=== PATIENT | male | born 1950 | race Asian ===

== ENCOUNTER 2021-03-25 02:47 | Inpatient (IN) | payer MEDICARE, OTHER ==
[2021-03-25] VITALS (14 sets, daily range): BP systolic 86–134; BP diastolic 42–81
[~2021-03-25] VITALS: Ht 160 cm; Wt 59.5 kg
[2021-03-25] MEDS ORDERED: morphine 4 MG/ML inj SYRINge IV ONE ×2 (03:20→03:35)
[2021-03-25] MEDS ORDERED: ondansetron/PF 4mg/2ml inj IV ONE (03:30)
[2021-03-25 03:34] LABS: BASOPHILS # (AUTO) 0.1 X10'3 (0-0.2); BASOPHILS % (AUTO) 0.7 % (0-1); EOSINOPHILS # (AUTO) 0.1 X10'3 (0-0.9); EOSINOPHILS % (AUTO) 0.7 % (0-6); HEMATOCRIT 46.7 % (42.0-52.0); HEMOGLOBIN 15.7 g/dl (14.0-17.9); LYMPHOCYTES # (AUTO) 0.9 X10'3 (1.1-4.8); MEAN CORPUSCULAR HEMOGLOBIN 31.3 PG (27.0-31.0); MEAN CORPUSCULAR HGB CONC 33.6 g/dL (33.0-36.5); MEAN CORPUSCULAR VOLUME 93.1 FL (78-98); MONOCYTES # (AUTO) 0.5 X10'3 (0-0.9); NEUTROPHILS # (AUTO) 7.3 X10'3 (1.8-7.7); NEUTROPHILS % (AUTO) 82.6 % (42-75); PLATELET COUNT 218 X10'3 (140-440); RED BLOOD COUNT 5.01 X10'6 (4.70-6.10); RED CELL DISTRIBUTION WIDTH 13.5 % (11.5-14.5); WHITE BLOOD COUNT 8.9 X10'3 (4.5-11.0)
[2021-03-25] MEDS ORDERED: morphine 4 MG/ML inj SYRINge ONE (03:34)
[2021-03-25 03:57] LABS: ALANINE AMINOTRANSFERASE 25 U/L (12-78); ALBUMIN 4.4 G/DL (3.4-5.0); ALBUMIN/GLOBULIN RATIO 1.3 (1.1-1.5); ALKALINE PHOSPHATASE 116 IU/L (46-116); ANION GAP 10 (8-16); ASPARTATE AMINO TRANSFERASE 20 U/L (10-37); BILIRUBIN,TOTAL 0.7 MG/DL (0.1-1.0); BLOOD UREA NITROGEN 19 MG/DL (7-18); CHLORIDE 103 MMOL/L (99-107); GLUCOSE 132 MG/DL (70-104); LIPASE 78 U/L (73-393); POTASSIUM 3.7 MMOL/L (3.5-5.1); SODIUM 141 MMOL/L (135-145); TOTAL CARBON DIOXIDE 28.4 MMOL/L (24-32); TOTAL PROTEIN 7.9 G/DL (6.4-8.2); eGFR 74 ML/MIN
[2021-03-25 04:25] LABS: CLARITY,URINE CLEAR (Clear); COLOR,URINE YELLOW (Yellow); GLUCOSE, URINE NEGATIVE (Neg); KETONES,URINE NEGATIVE (Neg); LEUKOCYTE ESTERASE ,URINE NEGATIVE (Neg); NITRITES, URINE NEGATIVE (Neg); OCCULT BLOOD,URINE TRACE-INTACT (Neg); PROTEIN,URINE NEGATIVE (Neg)
[2021-03-25 04:29] LABS: UA COLLECTION TYPE CLN CATCH MIDSTREAM
[2021-03-25 04:30] LABS: BACTERIA,URINE NONE SEEN /HPF (Neg); MUCUS STRANDS FEW /LPF (Neg); RBC,URINE 0-2 /HPF (0-2); SQUAMOUS EPITHELIAL CELL,UR FEW /LPF (FEW); WBC,URINE 0-4 /HPF (0-4)
[2021-03-25] MEDS ORDERED: piperacillin/tazo 4.5gm/100ml 100 ML IV ONE ×2 (05:45→08:00)
[2021-03-25] MEDS ORDERED: ondansetron/PF 4mg/2ml inj IV PRN ×3 (06:35→12:40)
[2021-03-25] MEDS ORDERED: potassium Cl 20 mEq SR tablet PO PRN ×2 (06:35)
[2021-03-25] MEDS ORDERED: mag hydrox/Alum hydrox/simeth 30ml oral suspension PO PRN (06:35)
[2021-03-25] MEDS ORDERED: magnesium 2GM in 50ml NS 50 ML IV PRN (06:35)
[2021-03-25] MEDS ORDERED: morphine 2 MG/ML inj. syringe IV PRN ×4 (06:35→12:40)
[2021-03-25] MEDS ORDERED: magnesium hydroxide 30ml (MOM) UD suspension PO PRN (06:35)
[2021-03-25] MEDS ORDERED: magnesium 4gm in 100ml NS 100 ML IV PRN (06:35)
[2021-03-25] MEDS ORDERED: potassium Cl 40MEQ/1/2NS 520ml 520 ML IV PRN ×2 (06:35)
[2021-03-25] MEDS ORDERED: acetaminophen 325mg tablet PO PRN (06:35)
[2021-03-25] MEDS ORDERED: ATOR40TA PO (07:32)
[2021-03-25] MEDS: normal saline 1000ml 1,000 ML IV SCH ×2 (07:37→16:35)
[2021-03-25] MEDS: K and/or MAG REPLACEMENT MC SCH ×2 (08:00→20:00)
[2021-03-25] MEDS ORDERED: INDOCYANINE GREEN 25 MG/10 ML VIAL IV ONE (09:00)
--- NOTE | 2021-03-25 10:19 | NUR ---
contact center agent Anywaldofredy Winters [phone]
[2021-03-25] MEDS ORDERED: hydrALAZINE 20mg/ml inj. IV PRN (10:20)
[2021-03-25] MEDS ORDERED: ringers solution, lacted 1,000 ML IV ONE (10:20)
[2021-03-25] MEDS ORDERED: morphine 4 MG/ML inj SYRINge IV PRN ×2 (10:20→12:40)
[2021-03-25] MEDS ORDERED: ringers solution, lacted 1,000 ML IV SCH ×2 (10:20→12:40)
[2021-03-25] MEDS ORDERED: fentaNYL/PF 50MCG/1 ML 2ML syringe IV PRN ×2 (10:20)
[2021-03-25] MEDS ORDERED: labetalol 20mg/4ml (5mg/ml) syringe IV PRN (10:20)
--- NOTE | 2021-03-25 11:04 | NUR ---
green dye given at 1100
--- NOTE | 2021-03-25 11:44 | NUR ---
Received report from ED on pt going directly to OR then to floor. OR picking up pt now.
[2021-03-25] MEDS ORDERED: LIDOcaine 1% 30ml preserv. free vial ONE (12:18)
[2021-03-25] MEDS ORDERED: BUPIVAcaine/PF 2.5 mg/ml (0.25%) 30ml vial ONE (12:18)
[2021-03-25] MEDS ORDERED: proCHLORperazine 10 MG/2 ml inj IV PRN (12:40)
[2021-03-25] MEDS ORDERED: meperidine/PF 25mg/ml syringe IV PRN ×3 (12:40)
[2021-03-25] MEDS ORDERED: neostigmine methylsulfate 1 MG/ML 10ml vial ONE (12:50)
[2021-03-25] MEDS ORDERED: midazolam 1 mg/ML 2ml injection ONE (12:50)
[2021-03-25] MEDS ORDERED: glycopyrrolate 0.2mg/ml inj ONE (12:50)
[2021-03-25] MEDS ORDERED: sevoflurane 250ml liquid IH ONE (12:50)
[2021-03-25] MEDS ORDERED: dexamethasone sod phosphate 10mg/ml inj ONE (12:50)
[2021-03-25] MEDS ORDERED: fentaNYL/PF 50MCG/1 ML 2ML syringe ONE ×2 (12:50→13:47)
[2021-03-25] MEDS ORDERED: rocuronium 10mg/ml inj IV ONE (12:50)
[2021-03-25] MEDS ORDERED: ceFAZolin 1000mg inj ONE ×2 (13:19)
[2021-03-25] MEDS ORDERED: ondansetron/PF 4mg/2ml inj ONE (13:19)
[2021-03-25] MEDS ORDERED: LIDOcaine 1%/PF 5ML 10 MG/ML VIAL ONE (13:19)
[2021-03-25] MEDS ORDERED: propofol inj 20 ML IV ONE (13:19)
[2021-03-25] MEDS ORDERED: HYDROcodone/acetaminophen 5mg/325mg tablet PO PRN (14:30)
--- NOTE | 2021-03-25 14:30 | NUR ---
Received from OR via BED, accompanied by Anesthesiologist FLOWER and report given by Anesthesiolgist. PT DROWSY, OXYGENATING WELL ON 10 LPM -2 VIA MASK, NOP RESP DISTRESS NOTED. PT DENIES NAUSEA, C/O MILD/MOD INCISIONAL PAIN. WILL MEDICATE PRN, SEE EMAR. LARGE BANDAIDS TO ABD TROCAR SITES, CDI. SCDS ON, NO LYNNE. VSS.
--- NOTE | 2021-03-25 15:25 | NUR ---
Report called to receiving nurse. Transferred via BED Belongings WITH PT, 1 BAG OF CLOTHING AND GLASSES. VSS, TOLERATING PO FLUIDS WELL. PAIN LEVEL SLOWLY TRENDING DOWN AFTER PAIN MEDS GIVEN. TRANSFERRED TO 4013B IN STABLE CONDITION. Special Issues communicated to receiving nurse.
--- NOTE | 2021-03-25 15:30 | NUR ---
Received pt and report from cone machine feeder Kelsie. Call light in reach, pt's nephew present. VSS, bed low. Oriented to room and post-op POC. both pt and family verbalize understanding.
--- NOTE | 2021-03-25 18:11 | NUR ---
Problems reprioritized. Patient report given, questions answered & plan of care reviewed with MAKENNA Nelson.
[2021-03-25] MEDS: piperacillin/tazo 4.5gm/100ml 100 ML IV SCH (19:14)
[2021-03-25] MEDS: HYDROcodone/acetaminophen 10/325mg tab PO PRN (19:16)
[2021-03-25] MEDS ORDERED: atorvastatin 20mg tablet PO SCH (21:00)
--- NOTE | 2021-03-26 04:10 | NUR ---
Patient in room ORTHO 4013. I have received report from Fracisco from ortho neuro Rn and had the opportunity to ask questions and will assume patient care upon arrival to room 360a..
[2021-03-26 05:10] VITALS: BP 93/55
--- NOTE | 2021-03-26 05:10 | NUR ---
pt arrived to the room and and set up vss no complaints. he noted family by phone that he was in this room now. pt ambulating without difficulty has not passed gas at yet.
--- NOTE | 2021-03-26 05:15 | NUR ---
TRANSFERRED PT TO 360A ON A WHEELCHAIR. GAVE REPORT TO MAKENNA WISE PRIOR TO PT'S TRANSFER.
--- NOTE | 2021-03-26 05:46 | NUR ---
iv pepcid given as ordered. no complaints at this time.
[2021-03-26] MEDS ORDERED: famotidine/PF 10 mg/ml inj IV ONE (06:00)
--- NOTE | 2021-03-26 06:03 | NUR ---
Problems reprioritized. Patient report given, questions answered & plan of care reviewed with DIANE MENSAH. Addendum: 03/26/21 at 0605 by Jazmín Bernabe RN Amended: Links added.
--- NOTE | 2021-03-26 06:28 | NUR ---
Problems reprioritized. Patient report given, questions answered & plan of care reviewed with MAKENNA MCMAHON. Addendum: 03/26/21 at 0630 by Leslie Phillips RN [facility] PT
[2021-03-26 07:00] VITALS: BP 105/60
[2021-03-26 07:41] LABS: BASOPHILS % (AUTO) 0.2 % (0-1); EOSINOPHILS % (AUTO) 0 % (0-6); HEMATOCRIT 44.9 % (42.0-52.0); LYMPHOCYTES # (AUTO) 0.9 X10'3 (1.1-4.8); LYMPHOCYTES % (AUTO) 6.6 % (21-51); MEAN CORPUSCULAR HEMOGLOBIN 31.5 PG (27.0-31.0); MEAN CORPUSCULAR HGB CONC 33.3 g/dL (33.0-36.5); MEAN CORPUSCULAR VOLUME 94.6 FL (78-98); MEAN PLATELET VOLUME 8.4 FL (7.4-10.4); MONOCYTES # (AUTO) 0.9 X10'3 (0-0.9); MONOCYTES % (AUTO) 6.6 % (2-12); NEUTROPHILS # (AUTO) 11.8 X10'3 (1.8-7.7); NEUTROPHILS % (AUTO) 86.6 % (42-75); PLATELET COUNT 192 X10'3 (140-440); RED BLOOD COUNT 4.74 X10'6 (4.70-6.10); WHITE BLOOD COUNT 13.6 X10'3 (4.5-11.0)
[2021-03-26] MEDS: K and/or MAG REPLACEMENT MC SCH (08:00)
[2021-03-26 08:18] LABS: ALANINE AMINOTRANSFERASE 28 U/L (12-78); ALBUMIN 3.6 G/DL (3.4-5.0); ALKALINE PHOSPHATASE 93 IU/L (46-116); ANION GAP 11 (8-16); ASPARTATE AMINO TRANSFERASE 31 U/L (10-37); BILIRUBIN,TOTAL 1.6 MG/DL (0.1-1.0); BLOOD UREA NITROGEN 14 MG/DL (7-18); BUN/CREATININE RATIO 13.7 (5.4-32.0); CALCIUM 8.4 MG/DL (8.5-10.1); CHLORIDE 106 MMOL/L (99-107); CREATININE 1.02 MG/DL (0.60-1.10); GLUCOSE 121 MG/DL (70-104); MAGNESIUM 2.2 MG/DL (1.5-2.4); POTASSIUM 3.9 MMOL/L (3.5-5.1); SODIUM 142 MMOL/L (135-145); TOTAL CARBON DIOXIDE 25.2 MMOL/L (24-32); TOTAL PROTEIN 7.3 G/DL (6.4-8.2); eGFR 72 ML/MIN
[2021-03-26] MEDS: piperacillin/tazo 4.5gm/100ml 100 ML IV SCH (08:59)
[2021-03-26] MEDS: normal saline 1000ml 1,000 ML IV SCH ×2 (09:03)
[2021-03-26] MEDS ORDERED: HYDR-3965 PO (11:39)
[2021-03-26] MEDS: HYDROcodone/acetaminophen 10/325mg tab PO PRN (12:52)
--- NOTE | 2021-03-26 15:30 | NUR ---
Patient was educated on worsening symptoms, medications, and follow up care. Iv was removed and canula was intact. Patient stated he had all belonging and was taken down by wheel chair.
== END 2021-03-26 15:27 | disposition home or self-care (01) | DRG 419 ==
LOC: ER 02:47 → ED HOLD 06:35 → PACU 15:03 → ORTHO 4S 15:40 → SUR 3N 03-26 06:10
PROVIDERS: ADMIT Family Medicine; ATTEND Family Medicine
PROC: 8E0W4CZ Robotic Assisted Procedure of Trunk Region, Percutaneous Endoscopic Approach (ICD-10-PCS; 2021-03-25)
PROC: BF532Z0 Other Imaging of Gallbladder and Bile Ducts using Fluorescing Agent, Intraoperative (ICD-10-PCS; 2021-03-25)
PROC: 0FT44ZZ Resection of Gallbladder, Percutaneous Endoscopic Approach (ICD-10-PCS; principal; 2021-03-25 12:50)
DX: K81.0 Acute cholecystitis (principal); E78.5 Hyperlipidemia, unspecified; Z90.49 Acquired absence of other specified parts of digestive tract; Z79.899 Other long term (current) drug therapy
CPT/HCPCS: 36415; 76700; 80053; 81001; 82948; 83690; 83735; 85025; 87081; 93005; 99285; A4215; A4618; A7000; G0378; J0690; J1100; J2001; J2175; J2250; J2270; J2405; J2543; J2704; J2710; J3010; J3490; J7030; J7120